=== PATIENT | male | born 1980 | race Caucasian/White ===

== ENCOUNTER 2021-07-04 06:20 | Emergency (ER) | payer OTHER ==
[2021-07-04] MEDS ORDERED: Ketorolac Tromethamine 60 MG/2 ML VIAL ONE (06:53)
[2021-07-04] MEDS ORDERED: Cyclobenzaprine 10 MG TAB ONE (06:53)
== END 2021-07-04 07:11 | disposition home or self-care (01) ==
LOC: NAV ERS 06:20
DX: M62.830 Muscle spasm of back (principal)
CPT/HCPCS: 96372; 99283; J1885